=== PATIENT | female | born 1960 | race Caucasian/White ===

== ENCOUNTER → 2018-04-17 16:07 | Outpatient (CLI) | payer OTHER, SELFPAY ==
[2018-04-17 16:39] LABS: Add Manual Diff / Slide Review NO; Basophils Percent Auto 1.2 % (0-2); Eosinophils Percent Auto 1.8 % (2-4); Hemoglobin 14.2 g/dL (12.0-16.0); Lymphocytes Percent Auto 43.4 % (25-40); Mean Corpuscular HGB Conc 33.8 % (30-36); Mean Corpuscular Hemoglobin 31.9 PG (26-34); Mean Corpuscular Volume 94.6 fL (80-100); Monocytes Percent Auto 7.9 % (3-14); Neutrophils Absolute Auto 1900 /uL (3000-5900); Neutrophils Percent Auto 45.7 % (50-75); Platelet Count 248 X10^3/uL (150-400); Red Blood Cell Count 4.44 X10^6/uL (4.0-5.2); Red Cell Distribution Width 12.4 % (11.6-14.8); White Blood Cell Count 4.1 X10^3/uL (4.5-11.0)
[2018-04-17 17:41] LABS: Alanine Aminotransferase 38 IU/L (9-52); Albumin 4.7 g/dL (3.5-5.0); Albumin Globulin Ratio 1.8 (1.0-2.8); Alkaline Phosphatase 65 U/L (38-126); Aspartate Aminotransferase 33 IU/L (14-36); Bilirubin Total 0.3 mg/dL (0.2-1.3); Blood Urea Nitrogen 12 mg/dL (7-17); Calcium 10.5 mg/dL (8.4-10.2); Carbon Dioxide 30 mmol/L (22-32); Chloride 96 mmol/L (98-107); Estimated Glomerular Filt Rate > 60.0 mL/min (>60); Globulin 2.6 g/dL (1.7-4.1); Glucose 91 mg/dL (70-100); HEMOLYSIS < 15 (0-50); Potassium 4.1 mmol/L (3.4-5.1); Sodium 136 mmol/L (137-145); Total Protein 7.3 g/dL (6.3-8.2)
[2018-04-17 17:57] LABS: Free T3, Triiodothyronine Free 3.42 pg/mL (2.77-5.27); Free T4, Direct Thyroxine 1.17 ng/dL (0.78-2.19)
[2018-04-17 18:09] LABS: Thyroid Stimulating Hormone 1.26 uIU/mL (0.47-4.68)
== END ==
PROVIDERS: PCP Family Medicine; Visit Provider Internal Medicine
DX: J32.9 Chronic sinusitis, unspecified (principal); H93.19 Tinnitus, unspecified ear; R79.89 Other specified abnormal findings of blood chemistry; E83.52 Hypercalcemia; R53.83 Other fatigue; Z13.29 Encounter for screening for other suspected endocrine disorder
CPT/HCPCS: 36415; 80053; 84439; 84443; 84481; 85025

== ENCOUNTER → 2018-04-19 17:00 | Outpatient (CLI) | payer OTHER, SELFPAY ==
[2018-04-21 15:54] LABS: Parathyroid Hormone Int 80 pg/mL (14-64)
== END ==
PROVIDERS: PCP Family Medicine; Visit Provider Internal Medicine
DX: E83.52 Hypercalcemia (principal)
CPT/HCPCS: 83970

== ENCOUNTER → 2018-04-24 16:15 | Outpatient (CLI) | payer OTHER, SELFPAY ==
[2018-04-24 18:22] LABS: Vitamin D 25 Hydroxy (D3) 69.2 ng/mL (30.0-100.0)
== END ==
PROVIDERS: PCP Family Medicine; Visit Provider Internal Medicine
DX: E34.9 Endocrine disorder, unspecified (principal)
CPT/HCPCS: 36415; 82306

== ENCOUNTER → 2018-04-28 09:32 | Outpatient (CLI) | payer OTHER, SELFPAY ==
[2018-04-28 11:51] LABS: Calcium 10.1 mg/dL (8.4-10.2)
[2018-05-01 14:18] LABS: Parathyroid Hormone Int 78 pg/mL (14-64)
== END ==
PROVIDERS: Family Provider Family Medicine; PCP Family Medicine; Visit Provider Internal Medicine
DX: E21.3 Hyperparathyroidism, unspecified (principal); E34.9 Endocrine disorder, unspecified
CPT/HCPCS: 36415; 82310; 83970

== ENCOUNTER → 2018-05-03 14:10 | Outpatient (CLI) | payer OTHER, SELFPAY | PROVIDERS: Family Provider Family Medicine; PCP Family Medicine; Visit Provider Internal Medicine | DX: M81.0 Age-related osteoporosis without current pathological fracture (principal); Z78.0 Asymptomatic menopausal state; E34.9 Endocrine disorder, unspecified | CPT/HCPCS: 77080 ==

== ENCOUNTER → 2018-06-04 14:19 | Outpatient (CLI) | payer OTHER, SELFPAY | PROVIDERS: Family Provider Family Medicine; PCP Family Medicine; Visit Provider Family Medicine | DX: J06.0 Acute laryngopharyngitis (principal) | CPT/HCPCS: 87070 ==

== ENCOUNTER → 2018-06-08 09:52 | Outpatient (CLI) | payer OTHER, SELFPAY ==
[2018-06-08 11:02] LABS: Calcium 10.1 mg/dL (8.4-10.2)
[2018-06-08 11:17] LABS: Free T3, Triiodothyronine Free 3.77 pg/mL (2.77-5.27); Free T4, Direct Thyroxine 1.42 ng/dL (0.78-2.19)
[2018-06-08 11:30] LABS: Thyroid Stimulating Hormone 0.09 uIU/mL (0.47-4.68)
[2018-06-09 14:05] LABS: Parathyroid Hormone Int 9 pg/mL (14-64)
[2018-06-12 15:11] LABS: Anti Thyroglobulin Antibody < 1 IU/mL (< 2); Thyroid Peroxidase Antibodies < 1 IU/mL (< 9)
== END ==
PROVIDERS: PCP Family Medicine; Visit Provider Family Medicine
DX: C73 Malignant neoplasm of thyroid gland (principal); M62.838 Other muscle spasm; E03.9 Hypothyroidism, unspecified
CPT/HCPCS: 36415; 82310; 83970; 84439; 84443; 84481; 86376; 86800

== ENCOUNTER 2018-06-09 12:06 | Emergency (ER) | payer OTHER, SELFPAY ==
[2018-06-09] VITALS (8 sets, daily range): BP systolic 145–198; BP diastolic 66–91; PULSE 71–87; RESP 11–19; TEMP 36.6; O2SAT 98–100; BMI 20.3
[2018-06-09 13:07] LABS: Add Manual Diff / Slide Review NO; Basophils Percent Auto 1.3 % (0-2); Eosinophils Percent Auto 1.3 % (2-4); Hematocrit 43.6 % (36-46); Hemoglobin 14.6 g/dL (12.0-16.0); Lymphocytes Percent Auto 33.2 % (25-40); Mean Corpuscular HGB Conc 33.4 % (30-36); Mean Corpuscular Hemoglobin 31.5 PG (26-34); Mean Corpuscular Volume 94.3 fL (80-100); Neutrophils Absolute Auto 2500 /uL (3000-5900); Neutrophils Percent Auto 57.2 % (50-75); Platelet Count 272 X10^3/uL (150-400); Red Blood Cell Count 4.62 X10^6/uL (4.0-5.2); Red Cell Distribution Width 12.5 % (11.6-14.8); White Blood Cell Count 4.3 X10^3/uL (4.5-11.0)
[2018-06-09 13:16] LABS: INR 1.1 (0.9-1.3); Prothrombin Time 11.7 SECONDS (10.1-12.7)
[2018-06-09 13:18] LABS: PTT Partial Thromboplastin Tim 30 SECONDS (26.4-36.2)
[2018-06-09 13:20] LABS: Alanine Aminotransferase 36 IU/L (9-52); Albumin 4.8 g/dL (3.5-5.0); Albumin Globulin Ratio 1.7 (1.0-2.8); Alkaline Phosphatase 72 U/L (38-126); Aspartate Aminotransferase 27 IU/L (14-36); BUN Creatinine Ratio 17.1 (6-22); Bilirubin Total 0.5 mg/dL (0.2-1.3); Blood Urea Nitrogen 12 mg/dL (7-17); Calcium 9.4 mg/dL (8.4-10.2); Carbon Dioxide 32 mmol/L (22-32); Chloride 97 mmol/L (98-107); Creatine Kinase 63 U/L (30-135); Estimated Glomerular Filt Rate > 60.0 mL/min (>60); Globulin 2.8 g/dL (1.7-4.1); Glucose 98 mg/dL (80-110); HEMOLYSIS < 15 (0-50); Lipase 220 U/L (23-300); Potassium 3.8 mmol/L (3.4-5.1); Sodium 139 mmol/L (137-145); Total Protein 7.6 g/dL (6.3-8.2)
[2018-06-09 13:36] LABS: Free T4, Direct Thyroxine 1.34 ng/dL (0.78-2.19); Troponin I < 0.012 ng/mL (0.01-0.034)
--- NOTE | 2018-06-09 19:59 | ED_ITS ---
HPI - Weakness General Chief complaint: Weakness Stated complaint: POST THYROID SURGERY, FEELS LIKE SHE WILL FAINT Time Seen by Provider: 06/09/18 12:29 Source: patient Mode of arrival: ambulatory Limitations: no limitations History of Present Illness HPI Narrative: 58-year-old female, nonsmoker presents with a chief complaint of right buttock spasm and some tingling in her fingers and legs. She recently had a parathyroid surgery by a renown surgeon in [place]. She has been taking supplemental calcium and had what seemed to be normal labs yesterday with a calcium of over 10.1. Over the past few days the symptoms including spasming and numbness and tingling in her extremities have started earlier in the day and seemed to present after exertion. She has been taking significant exogenous calcium at the request of her surgeons given the similarity of her symptoms to hypocalcemic symptoms. Additionally she has been taking exogenous magnesium. She is here at the request of her surgeon Complaint: tingling Onset (ago): day(s) Duration: intermittent Location: LLE and RLE Migration: none Severity: mild Quality: tingling and aching Relieving factors: none Exacerbating factors: none Context: recent surgery Associated symptoms: denies other symptoms Related Data Home Medications Medication Instructions Recorded Confirmed Fish Oil (#SUPER EPA 2000) 2,000 mg PO Q DAY #0 12/13/11 06/04/18 cholecalciferol (vitamin D3) 2,000 iu PO Q DAY #0 12/13/11 06/04/18 [Vitamin D3] ASCORBIC ACID (VITAMIN C) 1,000 mg PO QDAY #0 12/20/11 06/04/18 pseudoephedrine 30 mg tablet 30 mg PO Q4-6H PRN 04/10/18 06/04/18 Previous Rx's Medication Instructions Recorded acyclovir [Zovirax] 200 mg PO TID #270 tab 06/30/17 Allergies Allergy/AdvReac Type Severity Reaction Status Date / Time No Known Drug Allergies Allergy Verified 06/09/18 12:18 Review of Systems Review of Systems All systems reviewed & are unremarkable except as noted in HPI and below Constitutional Denies chills, Denies fever(s), Denies lethargy and Denies weakness Eyes Denies change in vision, Denies eye discharge, Denies irritation and Denies loss of vision ENT Ears, Nose, Mouth, and Throat: Denies change in voice, Denies neck pain and Denies sore throat Cardiovascular Denies chest pain, Denies irregular heart rhythm, Denies lightheadedness, Denies palpitations, Denies dyspnea, Denies dyspnea on exertion and Denies orthopnea Respiratory Denies cough, Denies dyspnea, Denies dyspnea on exertion and Denies wheezing Gastrointestinal Gastrointestinal: Denies abdominal pain, Denies change in bowel habits, Denies diarrhea, Denies nausea and Denies vomiting Genitourinary Denies hematuria, Denies flank pain, Denies urinary incontinence and Denies urinary urgency Musculoskeletal Reports system reviewed and no additional complaints, except as docu and Denies neck pain Integumentary/Breasts Denies pruritus, Denies erythema, Denies rash and Denies wounds Neurologic Reports system reviewed and no additional complaints, except as docu, Denies confusion, Denies loss of vision and Denies weakness Psychiatric Denies anxiety, Denies confusion, Denies depression, Denies homicidal ideation and Denies suicidal ideation Endocrine Denies palpitations Hematologic/Lymphatic Denies easy bruising Allergic/Immunologic Denies wheezing [facility] Medical History Osteopenia (Chronic ~2011) Benign heart murmur (Chronic) Skin cancer, basal cell (Resolved ~2011) Menopause (Chronic) Thyroid nodule (Chronic ~2002) Surgical History History of parathyroidectomy (Acute) Anesthesia (Inactive) Status post delivery (~1991) Status post colonoscopy (~2011) Family History Brother Colitis Anxiety Father Dementia Broken hip Mother Anxiety Grandmother Dementia Sister Depression Sister Brain tumor Seizures Social History Smoking Status: Never smoker Exam Narrative Exam Narrative: GENERAL: This is a well-nourished, well-developed patient, in mild distress. Anxious HEAD: Atraumatic. Normocephalic. No temporal or scalp tenderness. EYES: Pupils equal round and reactive. Extraocular motions intact. No scleral icterus. No injection or drainage. ENT: Nose without bleeding, purulent drainage or septal hematoma. Throat without erythema, tonsillar hypertrophy or exudate. Uvula midline. Airway patent. NECK: Trachea midline. No JVD or lymphadenopathy. Supple, nontender, no meningeal signs. CARDIOVASCULAR: Regular rate and rhythm without murmurs, gallops, or rubs. RESPIRATORY: Clear to auscultation. Breath sounds equal bilaterally. No wheezes , rales, or rhonchi. GASTROINTESTINAL: Abdomen soft, non-tender, nondistended. No hepato-splenomegaly , or palpable masses. No guarding. EXTREMITIES: No clubbing, cyanosis, or edema. No joint tenderness, effusion, or edema noted. BACK: Nontender without deformity or crepitance. No flank tenderness. NEURO: AOx3. SKIN: No rash or erythema. Initial Vital Signs Initial Vital Signs: Vital Signs Temperature 97.9 F 06/09/18 12:14 Pulse Rate 87 06/09/18 12:14 Respiratory Rate 14 06/09/18 12:14 Blood Pressure 198/91 H 06/09/18 12:14 Pulse Oximetry 100 06/09/18 12:14 Course Orders Ordered: ED Orders 06/09/18 12:26 EKG-12 Lead Stat 06/09/18 13:00 Complete Blood Count AUTO DIFF Stat Comprehensive Metabolic Panel Stat Free T4 Free Thyroxine Stat Ionized Calcium Stat Lipase Stat Magnesium Stat Partial Thromboplastin Time Stat Prothrombin Time INR Stat TSH [Thyroid Stimulating Hormone] Stat Thyroid Stimulating Immunoglob Stat Troponin & CK Cardiac Panel Stat Reevaluation(s) Reevaluation #1: Patient has no Trousseau/Chvostek sign of hypocalcemia. Labs are normal. Exam unremarkable. Consultations Consultation #1: I have spoken with the patient's surgeon from [place] room wishes me to reassure the patient and encourage electrolyte replacement as they had previously discussed and to contact him for further problems Vital Signs - 8 hr 06/09/18 12:14 06/09/18 12:30 06/09/18 13:00 Temperature 97.9 F Pulse Rate 87 75 78 Respiratory Rate 14 16 12 Blood Pressure 198/91 H Blood Pressure [Left Arm] 151/72 H 161/77 H Pulse Oximetry 100 100 100 06/09/18 13:40 06/09/18 14:00 06/09/18 14:32 Temperature Pulse Rate 71 72 76 Respiratory Rate 11 L 19 16 Blood Pressure Blood Pressure [Left Arm] 167/72 H 145/74 H 158/66 H Pulse Oximetry 100 100 99 06/09/18 15:38 06/09/18 15:55 Temperature Pulse Rate 74 78 Respiratory Rate 18 16 Blood Pressure 159/76 H Blood Pressure [Left Arm] 159/76 H Pulse Oximetry 100 98 MDM - Weakness Lab Data Result diagrams: 06/09/18 13:00 06/09/18 13:00 Lab Results 06/09/18 06/09/18 06/09/18 Range/Units 13:00 13:00 13:00 WBC 4.3 L (4.5-11.0) X10^3/uL RBC 4.62 (4.0-5.2) X10^6/uL Hgb 14.6 (12.0-16.0) g/dL Hct 43.6 (36-46) % MCV 94.3 (80-100) fL MCH 31.5 (26-34) PG MCHC 33.4 (30-36) % RDW 12.5 (11.6-14.8) % Plt Count 272 (150-400) X10^3/uL Neut % (Auto) 57.2 (50-75) % Lymph % (Auto) 33.2 (25-40) % Nash % (Auto) 7.0 (3-14) % Eos % (Auto) 1.3 L (2-4) % Baso % (Auto) 1.3 (0-2) % Neut # (Auto) 2500 L (3146-5570) /uL PT 11.7 (10.1-12.7) SECONDS INR 1.1 (0.9-1.3) APTT 30 (26.4-36.2) SECONDS Sodium 139 (137-145) mmol/L Potassium 3.8 (3.4-5.1) mmol/L Chloride 97 L (98-107) mmol/L Carbon Dioxide 32 (22-32) mmol/L BUN 12 (7-17) mg/dL Creatinine 0.70 (0.52-1.04) mg/dL Estimated GFR > 60.0 (>60) mL/min BUN/Creatinine Ratio 17.1 (6-22) Glucose 98 (80-110) mg/dL Calcium 9.4 (8.4-10.2) mg/dL Magnesium 2.0 (1.6-2.3) mg/dL Total Bilirubin 0.5 (0.2-1.3) mg/dL AST 27 (14-36) IU/L ALT 36 (9-52) IU/L Alkaline Phosphatase 72 (38-126) U/L Total Creatine Kinase 63 (30-135) U/L CK-MB (CK-2) TNP CK-MB (CK-2) Rel Index TNP Troponin I < 0.012 (0.01-0.034) ng/mL Total Protein 7.6 (6.3-8.2) g/dL Albumin 4.8 (3.5-5.0) g/dL Globulin 2.8 (1.7-4.1) g/dL Albumin/Globulin Ratio 1.7 (1.0-2.8) Lipase 220 (23-300) U/L TSH (0.47-4.68) uIU/mL Free T4 (0.78-2.19) ng/dL 06/09/18 Range/Units 13:00 WBC (4.5-11.0) X10^3/uL RBC (4.0-5.2) X10^6/uL Hgb (12.0-16.0) g/dL Hct (36-46) % MCV (80-100) fL MCH (26-34) PG MCHC (30-36) % RDW (11.6-14.8) % Plt Count (150-400) X10^3/uL Neut % (Auto) (50-75) % Lymph % (Auto) (25-40) % Nash % (Auto) (3-14) % Eos % (Auto) (2-4) % Baso % (Auto) (0-2) % Neut # (Auto) (2878-2040) /uL PT (10.1-12.7) SECONDS INR (0.9-1.3) APTT (26.4-36.2) SECONDS Sodium (137-145) mmol/L Potassium (3.4-5.1) mmol/L Chloride (98-107) mmol/L Carbon Dioxide (22-32) mmol/L BUN (7-17) mg/dL Creatinine (0.52-1.04) mg/dL Estimated GFR (>60) mL/min BUN/Creatinine Ratio (6-22) Glucose (80-110) mg/dL Calcium (8.4-10.2) mg/dL Magnesium (1.6-2.3) mg/dL Total Bilirubin (0.2-1.3) mg/dL AST (14-36) IU/L ALT (9-52) IU/L Alkaline Phosphatase (38-126) U/L Total Creatine Kinase (30-135) U/L CK-MB (CK-2) CK-MB (CK-2) Rel Index Troponin I (0.01-0.034) ng/mL Total Protein (6.3-8.2) g/dL Albumin (3.5-5.0) g/dL Globulin (1.7-4.1) g/dL Albumin/Globulin Ratio (1.0-2.8) Lipase (23-300) U/L TSH 0.10 L (0.47-4.68) uIU/mL Free T4 1.34 (0.78-2.19) ng/dL Discharge Plan Departure Patient Disposition: Home Clinical Impression: Paresthesia, Cramps of right lower extremity Discharge Date/Time: 06/09/18 15:55 Interventions: ED Discharge Assessment Last Done: 06/09/18 15:55 Instructions: DI for Hypocalcemia Activity Restrictions/Additional Instructions: *You have been diagnosed with [ paresthesias and leg cramps ] *What to do: *Take medications as directed *Follow up with your primary care provider in 2-3 days, call for an appointment. Let them know you were seen in the Emergency Department and that we ask that you be seen in follow up *Return to ER if you should have any new, worsening or concerning symptoms Prescriptions: No Action cholecalciferol (vitamin D3) [Vitamin D3] 2,000 UNIT capsule 2,000 iu PO Q DAY Qty: 0 RF: 0 Fish Oil (#SUPER EPA 2000) 2,000 mg PO Q DAY Qty: 0 RF: 0 ASCORBIC ACID (VITAMIN C) 1,000 mg PO QDAY Qty: 0 RF: 0 acyclovir [Zovirax] 200 MG capsule 200 mg PO TID Qty: 270 RF: 3 pseudoephedrine HCl [Sudafed] 30 mg tablet 30 mg PO Q4-6H PRNRF: 0 Referrals: Elsy Mendoza DO [Primary Care Provider] -
[2018-06-12 15:44] LABS: Thyroid Stimulating Immunoglob < 89 % baseline (< 140)
== END 2018-06-09 15:55 | disposition home or self-care (01) ==
PROVIDERS: Emergency Provider Emergency Medicine; PCP Family Medicine
DX: R20.2 Paresthesia of skin (principal); R25.2 Cramp and spasm; Z98.890 Other specified postprocedural states
CPT/HCPCS: 36415; 80053; 82330; 82550; 83690; 83735; 84439; 84443; 84445; 84484; 85025; 85610; 85730; 93005; 93010; 99284

== ENCOUNTER → 2018-06-14 07:53 | Outpatient (CLI) | payer OTHER, SELFPAY ==
[2018-06-14 09:19] LABS: Calcium 9.3 mg/dL (8.4-10.2)
[2018-06-14 09:41] LABS: TSH w/ Reflex to FT4 1.07 uIU/mL (0.47-4.68)
[2018-06-16 14:44] LABS: Parathyroid Hormone Int 59 pg/mL (14-64)
== END ==
PROVIDERS: PCP Family Medicine; Visit Provider Family Medicine
DX: E21.3 Hyperparathyroidism, unspecified (principal); R20.2 Paresthesia of skin; E03.9 Hypothyroidism, unspecified
CPT/HCPCS: 36415; 82310; 83970; 84443

== ENCOUNTER → 2018-06-16 10:10 | Outpatient (CLI) | payer OTHER, SELFPAY ==
--- NOTE | 2018-06-16 10:11 | DI.RAD.S_ITS ---
PROCEDURE: XR HIP W PEL IF DONE RT 2V INDICATIONS: Right hip pain TECHNIQUE: AP pelvis with lateral view(s) of the right hip(s). COMPARISON: [facility], XR PELVIS 1 OR 2VW, 05/31/2016, 15:09. FINDINGS: Bones: No fractures or dislocations. Pelvic ring appears intact. No suspicious bony lesions. Mild degenerative changes are present within the hips bilaterally. Soft tissues: The visualized bowel gas pattern is normal. No suspicious soft tissue calcifications. IMPRESSION: Mild degenerative changes. No visualized acute fracture or dislocation. However, if clinical concern and/or pain persist, short interval imaging followup in 7-10 days is recommended, as occult injury cannot be definitively excluded. Dictated by: Janeth Gaffney M.D. on 06/16/2018 at 10:58 Approved by: Janeth Gaffney M.D. on 06/16/2018 at 10:58
== END ==
PROVIDERS: PCP Family Medicine; Visit Provider Family Medicine
DX: M25.551 Pain in right hip (principal); M16.0 Bilateral primary osteoarthritis of hip
CPT/HCPCS: 73502

== ENCOUNTER → 2018-06-27 16:20 | Outpatient (CLI) | payer OTHER, SELFPAY ==
--- NOTE | 2018-06-27 16:22 | DI.RAD.S_ITS ---
PROCEDURE: XR LUMBAR SPINE MIN 4V INDICATIONS: nerve impingement with low back pain TECHNIQUE: 5 views of the lumbar spine acquired. COMPARISON: None. FINDINGS: Bones: No fracture or focal osseous destruction. Diffuse endplate spurring and sclerosis. Trace anterolisthesis of L4 on L5. Diffuse facet arthropathy. Minimal levocurvature. Moderate narrowing of the L2-L3 and L4-L5 disc space. The remaining disc spaces appear intact. Soft tissues: Overlying bowel gas pattern is normal. No suspicious soft tissue calcifications. Flexion/extension: No evidence of abnormal motion with flexion and extension lateral views. IMPRESSION: Lumbar disc degeneration as above most pronounced at L2-L3 and L4-5. Diffuse facet arthropathy. Dictated by: Mehul Loaiza M.D. on 06/27/2018 at 16:51 Approved by: Mehul Loaiza M.D. on 06/27/2018 at 16:52
[2018-06-27 17:52] LABS: BUN Creatinine Ratio 17.1 (6-22); Blood Urea Nitrogen 12 mg/dL (7-17); Calcium 9.7 mg/dL (8.4-10.2); Carbon Dioxide 27 mmol/L (22-32); Chloride 99 mmol/L (98-107); Estimated Glomerular Filt Rate > 60.0 mL/min (>60); Glucose 95 mg/dL (80-110); HEMOLYSIS < 15 (0-50); Phosphorous 4.1 mg/dL (2.8-4.1); Potassium 4.7 mmol/L (3.4-5.1); Sodium 138 mmol/L (137-145)
[2018-06-27 18:08] LABS: Free T3, Triiodothyronine Free 3.18 pg/mL (2.77-5.27); Free T4, Direct Thyroxine 1.15 ng/dL (0.78-2.19); Vitamin D 25 Hydroxy (D3) 52.2 ng/mL (30.0-100.0)
[2018-06-30 08:08] LABS: Magnesium, RBC 5.5 mg/dL (4.0-6.4)
== END ==
PROVIDERS: PCP Family Medicine; Visit Provider Family Medicine
DX: M47.816 Spondylosis without myelopathy or radiculopathy, lumbar region (principal); M51.36 Other intervertebral disc degeneration, lumbar region; M62.838 Other muscle spasm; M79.604 Pain in right leg; E04.1 Nontoxic single thyroid nodule; M54.9 Dorsalgia, unspecified; M54.5 Low back pain; E21.3 Hyperparathyroidism, unspecified
CPT/HCPCS: 36415; 72110; 80048; 82306; 83735; 84100; 84439; 84481

== ENCOUNTER → 2018-07-20 15:06 | Outpatient (CLI) | payer OTHER, SELFPAY ==
[2018-07-20 15:40] LABS: BUN Creatinine Ratio 16.3 (6-22); Blood Urea Nitrogen 13 mg/dL (7-17); Calcium 9.9 mg/dL (8.4-10.2); Carbon Dioxide 28 mmol/L (22-32); Chloride 98 mmol/L (98-107); Estimated Glomerular Filt Rate > 60.0 mL/min (>60); Glucose 111 mg/dL (80-110); HEMOLYSIS < 15 (0-50); Potassium 4.6 mmol/L (3.4-5.1); Sodium 140 mmol/L (137-145)
[2018-07-24 12:18] LABS: Parathyroid Hormone Int 55 pg/mL (14-64)
== END ==
PROVIDERS: PCP Family Medicine; Visit Provider Family Medicine
DX: E83.51 Hypocalcemia (principal); M81.8 Other osteoporosis without current pathological fracture; E21.3 Hyperparathyroidism, unspecified
CPT/HCPCS: 36415; 80048; 82306; 83970; 84100

== ENCOUNTER → 2018-08-03 09:04 | Outpatient (CLI) | payer OTHER, SELFPAY ==
[2018-08-03 11:05] LABS: Free T4, Direct Thyroxine 1.06 ng/dL (0.78-2.19)
[2018-08-03 11:06] LABS: Prolactin 9.5 ng/mL (3.0-18.6)
[2018-08-03 11:19] LABS: Thyroid Stimulating Hormone 1.18 uIU/mL (0.47-4.68)
== END ==
PROVIDERS: PCP Family Medicine; Visit Provider Family Medicine
DX: C73 Malignant neoplasm of thyroid gland (principal); E04.1 Nontoxic single thyroid nodule; E21.3 Hyperparathyroidism, unspecified
CPT/HCPCS: 36415; 84146; 84439; 84443

== ENCOUNTER → 2019-02-07 07:46 | Outpatient (CLI) | payer OTHER, SELFPAY ==
[2019-02-07 09:15] LABS: Add Manual Diff / Slide Review NO; Basophils Absolute Auto 0 /uL (0-100); Basophils Percent Auto 1.4 % (0-2); Eosinophils Absolute Auto 100 /uL (0-450); Eosinophils Percent Auto 2.4 % (2-4); Hematocrit 41.1 % (36-46); Hemoglobin 14.2 g/dL (12.0-16.0); Lymphocytes Absolute Auto 1500 /uL (1100-4500); Lymphocytes Percent Auto 46.3 % (25-40); Mean Corpuscular HGB Conc 34.4 % (30-36); Mean Corpuscular Hemoglobin 32.1 PG (26-34); Mean Corpuscular Volume 93.4 fL (80-100); Monocytes Absolute Auto 300 /uL (0-900); Neutrophils Absolute Auto 1300 /uL (1500-7000); Neutrophils Percent Auto 40.9 % (50-75); Platelet Count 204 X10^3/uL (150-400); Red Blood Cell Count 4.41 X10^6/uL (4.0-5.2); Red Cell Distribution Width 12.5 % (11.6-14.8); White Blood Cell Count 3.2 X10^3/uL (4.5-11.0)
[2019-02-07 09:51] LABS: Free T3, Triiodothyronine Free 2.62 pg/mL (2.77-5.27); Free T4, Direct Thyroxine 1.11 ng/dL (0.78-2.19)
[2019-02-07 10:05] LABS: Thyroid Stimulating Hormone 1.17 uIU/mL (0.47-4.68)
[2019-02-08 09:30] LABS: Alanine Aminotransferase 32 IU/L (9-52); Albumin 4.6 g/dL (3.5-5.0); Albumin Globulin Ratio 2.1 (1.0-2.8); Alkaline Phosphatase 57 U/L (38-126); Aspartate Aminotransferase 27 IU/L (14-36); BUN Creatinine Ratio 15.7 (6-22); Bilirubin Total 0.4 mg/dL (0.2-1.3); Blood Urea Nitrogen 11 mg/dL (7-17); Calcium 9.3 mg/dL (8.4-10.2); Carbon Dioxide 27 mmol/L (22-32); Chloride 96 mmol/L (98-107); Estimated Glomerular Filt Rate > 60.0 mL/min (>60); Globulin 2.2 g/dL (1.7-4.1); Glucose 81 mg/dL (80-110); HEMOLYSIS < 15 (0-50); Potassium 4.6 mmol/L (3.4-5.1); Sodium 132 mmol/L (137-145); Total Protein 6.8 g/dL (6.3-8.2)
== END ==
PROVIDERS: PCP Family Medicine; Visit Provider Family Medicine
DX: E04.1 Nontoxic single thyroid nodule (principal); E21.3 Hyperparathyroidism, unspecified; E55.9 Vitamin D deficiency, unspecified; E83.51 Hypocalcemia; J32.9 Chronic sinusitis, unspecified; R01.0 Benign and innocent cardiac murmurs
CPT/HCPCS: 36415; 80053; 82306; 84439; 84443; 84481; 85025

== ENCOUNTER → 2019-04-05 07:47 | Outpatient (CLI) | payer OTHER, SELFPAY ==
[2019-04-05 17:14] LABS: Thyroid Stimulating Hormone 0.69 uIU/mL (0.47-4.68)
== END ==
PROVIDERS: Family Provider Family Medicine; PCP Family Medicine; Visit Provider Naturopath
DX: E03.9 Hypothyroidism, unspecified (principal)
CPT/HCPCS: 36415; 84443

== ENCOUNTER → 2019-08-22 14:47 | Outpatient (CLI) | payer OTHER, SELFPAY ==
[2019-08-24 16:01] LABS: Calcium 8.7 mg/dL (8.6-10.4); Parathyroid Hormone, Intact 38 pg/mL (14-64)
[2019-08-24 16:08] LABS: Anti Thyroglobulin Antibody < 1 IU/mL (< 2); Thyroid Peroxidase Antibodies < 1 IU/mL (< 9)
[2019-08-25 15:13] LABS: Triiodothyronine T3 Reverse 15 ng/dL (8-25)
== END ==
PROVIDERS: Family Provider Family Medicine; PCP Family Medicine; Visit Provider Family Medicine
DX: E03.9 Hypothyroidism, unspecified (principal); E04.1 Nontoxic single thyroid nodule; E21.3 Hyperparathyroidism, unspecified
CPT/HCPCS: 36415; 82310; 83970; 84482; 86376; 86800

== ENCOUNTER → 2020-06-10 15:31 | Outpatient (ROUT) | payer SELFPAY ==
[2020-06-10 16:08] LABS: Appearance Urine UA CLEAR; Bilirubin Urine UA NEGATIVE (NEGATIVE); Color Urine UA YELLOW; Glucose Urine UA NEGATIVE (Negative); Ketones Urine UA NEGATIVE (NEGATIVE); Leukocyte Esterase Urine UA 2+ (NEGATIVE); Nitrite Urine UA NEGATIVE (Negative); Occult Blood Urine UA 3+ (Negative); Protein Urine UA 1+ (Negative); Specific Gravity Urine UA <=1.005 (1.000-1.035); Urobilinogen Urine UA 0.2 E.U./dL (0.2)
[2020-06-10 16:27] LABS: pH Urine UA 6.5 (4.5-8.0)
[2020-06-10 17:48] LABS: Bacteria Urine Many (>30); Culture Indicated Urine Specimen Cultured; RBC Urine 5-10/HPF (0-5/HPF); Renal Epithelial Cells Urine 0-1/HPF (0-1/HPF); Squamous Epithelial Cell Urine 0-1 /HPF (0-5/HPF); Transitional Epi Cells Urine 0-1/HPF (0-5/HPF); WBC Urine 30-100/HPF (0-5/HPF)
== END ==
PROVIDERS: Family Provider Family Medicine; PCP Family Medicine; Visit Provider Naturopath
DX: N39.0 Urinary tract infection, site not specified (principal)
CPT/HCPCS: 81001; 87077; 87086; 87186

== ENCOUNTER → 2020-10-02 07:57 | Outpatient (CLI) | payer OTHER, SELFPAY ==
[2020-10-02] MEDS: COVID-19 VACC #1, MRNA(MOD) 100 MCG/0.5 ML VIAL IM (08:02)
== END ==
PROVIDERS: Family Provider Family Medicine; PCP Family Medicine; Visit Provider Internal Medicine
DX: Z23 Encounter for immunization (principal)
CPT/HCPCS: 0011A; 91301

== ENCOUNTER → 2020-10-29 15:33 | Outpatient (CLI) | payer OTHER, SELFPAY ==
[2020-10-29] MEDS: COVID-19 VACC #2, MRNA(MOD) 100 MCG/0.5 ML VIAL IM (15:40)
== END ==
PROVIDERS: Family Provider Family Medicine; PCP Family Medicine; Visit Provider Internal Medicine
DX: Z23 Encounter for immunization (principal)
CPT/HCPCS: 0012A; 91301

== ENCOUNTER → 2021-01-18 14:03 | Outpatient (CLI) | payer OTHER, SELFPAY ==
--- NOTE | 2021-01-18 14:05 | DI.RAD.S_ITS ---
PROCEDURE: XR DEXA AXIAL SKELETON INDICATIONS: osteoporosis COMPARISON: [facility], CR, XR DEXA AXIAL SKELETON, 05/03/2018, 14:50. FINDINGS: This blank DEXA report has been sent in error by the PACS system. The correct and complete report will be forthcoming in 1-2 days. Thank you for your patience and understanding. Dictated by: Berkley Rios MD, PhD on 01/18/2021 at 16:54 Approved by: Berkley Rios MD, PhD on 01/18/2021 at 16:54
--- NOTE | 2021-01-18 14:05 | DI.US.S_ITS ---
PROCEDURE: US THYROID INDICATIONS: NODULES; HISTORY THYROID CANCER TECHNIQUE: Real-time scanning was performed of the thyroid gland, with image documentation. COMPARISON: [facility], , US THYROID, 12/30/2002, 11:00. FINDINGS: Right: Thyroid lobe measures 5.1 x 1.7 x 1.1 cm, and is homogeneous in echotexture. Left: Thyroid lobe measures 4.4 x 1.2 x 1.1 cm, and is homogenous in echotexture. Isthmus: 4 mm thick. Nodule number: 1 Location: Left mid Size: 0.6 x 0.5 x 0.3 cm. Composition: Predominantly cystic Echogenicity: Hypoechoic Shape: wider than tall. Margins: Smooth Echogenic foci: None Total points: 2 ACR TI-RADS category: TR 2, not suspicious Nodule number: 2 Location: Right isthmus Size: 1.3 x 1.1 x 0.5 cm. Composition: Solid Echogenicity: Isoechoic Shape: Wider than tall Margins: Smooth Echogenic foci: None Total points: 3 ACR TI-RADS category: TR 3, mildly suspicious Nodule number: 3 Location: Right superior Size: 1.4 x 1.1 x 0.8 cm. Composition: Solid Echogenicity: Isoechoic Shape: wider than tall. Margins: Smooth Echogenic foci: None Total points: 3 ACR TI-RADS category: TR 3, mildly suspicious Nodule number: 4 Location: Right superior Size: 1.3 x 0.7 x 0.6 cm. Composition: Solid Echogenicity: Hypoechoic Shape: wider than tall. Margins: Smooth Echogenic foci: None Total points: 4 ACR TI-RADS category: TR 4, moderately suspicious IMPRESSION: Several thyroid nodules as described above. Right superior thyroid nodule measuring 1.3 cm. TR 4, moderately suspicious. Recommend follow-up thyroid ultrasound in 1 year. ACR TI-RADS definitions and recommendations: TI-RADS 1 (benign): 0 points. FNA not needed. TI-RADS 2 (not suspicious): 2 points. FNA not needed. TI-RADS 3 (mildly suspicious): 3 points. * FNA if 2.5 cm or larger, follow up if 1.5 cm or larger (at 1, 3, and 5 years). TI-RADS 4 (moderately suspicious): 4-6 points. * FNA if 1.5 cm or larger, follow up if 1 cm or larger (at 1, 2, 3, and 5 years). TI-RADS 5 (highly suspicious): 7 points or more. * FNA if 1 cm or larger, follow up if 0.5 cm or larger (every year for 5 years). Dictated by: Fletcher Durant M.D. on 01/18/2021 at 17:25 Approved by: Fletcher Durant M.D. on 01/18/2021 at 17:32
== END ==
PROVIDERS: Family Provider Family Medicine; PCP Family Medicine; Referring Provider Family Medicine; Visit Provider Family Medicine
DX: C73 Malignant neoplasm of thyroid gland (principal); E04.2 Nontoxic multinodular goiter; E21.3 Hyperparathyroidism, unspecified; E03.9 Hypothyroidism, unspecified; M81.0 Age-related osteoporosis without current pathological fracture; Z78.0 Asymptomatic menopausal state
CPT/HCPCS: 76536; 77080

== ENCOUNTER → 2023-01-06 15:17 | Outpatient (CLI) | payer OTHER, SELFPAY ==
--- NOTE | 2023-01-06 15:19 | DI.US.S_ITS ---
PROCEDURE: US THYROID INDICATIONS: thyroid nodule TECHNIQUE: Real-time scanning was performed of the thyroid gland, with image documentation. COMPARISON: [facility], [place], US THYROID, 01/18/2021, 14:17. FINDINGS: Right: Thyroid lobe measures 4.4 x 1.2 x 1.2 cm, and demonstrates nodules Left: Thyroid lobe measures 4.8 x 1.1 x 1.3 cm, and is demonstrates nodules Isthmus: 4 mm thick. Nodule number: 1 Location: Left mid thyroid Size: 0.4 x 0.3 x 0.4 cm. Composition: Solid Echogenicity: Isoechoic Shape: wider than tall. Margins: Smooth Echogenic foci: 0 Total points: 3 ACR TI-RADS category: 3 Recommendations: No follow-up necessary based on size Nodule number: 2 Location: Left mid thyroid Size: 0.6 x 0.4 x 0.6 cm. Composition: Predominantly cystic Echogenicity: Hypoechoic Shape: wider than tall. Margins: Smooth Echogenic foci: 0 Total points: 2 ACR TI-RADS category: 2 Recommendations: No follow-up necessary. Nodule number: 3 Location: Left upper thyroid Size: 0.6 x 0.3 x 0.6 cm. Composition: Predominantly cystic Echogenicity: Hypoechoic Shape: wider than tall. Margins: Smooth Echogenic foci: 0 Total points: 2 ACR TI-RADS category: 2 Recommendations: No follow-up necessary Nodule number: 4 Location: Right isthmus Size: 1.3 x 0.6 x 1.1 cm. Composition: Solid Echogenicity: Hypoechoic Shape: wider than tall. Margins: Smooth Echogenic foci: 0 Total points: 4 ACR TI-RADS category: 4 Recommendations: Follow-up imaging at 1, 2, 3, and 5 years Nodule number: 5 Location: Right superior thyroid Size: 1.5 x 0.7 x 1.2 cm. Composition: Solid Echogenicity: Isoechoic Shape: wider than tall. Margins: Smooth Echogenic foci: 0 Total points: 3 ACR TI-RADS category: 3 Recommendations: Follow-up imaging at 1, 3, and 5 years Nodule number: 6 Location: Right mid thyroid Size: 0.9 x 0.5 x 0.8 cm. Composition: Predominantly solid Echogenicity: Hypoechoic Shape: wider than tall. Margins: Smooth Echogenic foci: 0 Total points: 4 ACR TI-RADS category: 4 Recommendations: Follow-up imaging at 1, 2, 3, and 5 years IMPRESSION: Bilateral thyroid nodules with follow-up imaging recommendations as above. Dictated by: Ej Wells M.D. on 01/06/2023 at 16:18 Transcribed by: NALINI on 01/06/2023 at 16:23 Approved by: Ej Wells M.D. on 01/06/2023 at 16:33
== END ==
PROVIDERS: Family Provider Family Medicine; PCP Family Medicine; Referring Provider Family Medicine; Visit Provider Family Medicine
DX: C73 Malignant neoplasm of thyroid gland (principal); E21.3 Hyperparathyroidism, unspecified; E04.2 Nontoxic multinodular goiter
CPT/HCPCS: 76536

== ENCOUNTER → 2023-02-15 08:17 | Outpatient (CLI) | payer OTHER, SELFPAY ==
[2023-02-16 16:07] LABS: Fecal Immunochemical Test Negative (Negative)
== END ==
PROVIDERS: Family Provider Family Medicine; PCP Family Medicine; Referring Provider Family Medicine; Visit Provider Family Medicine
DX: Z12.11 Encounter for screening for malignant neoplasm of colon (principal)
CPT/HCPCS: 82274

== ENCOUNTER → 2023-04-03 15:21 | Outpatient (CLI) | payer OTHER, SELFPAY ==
--- NOTE | 2023-04-03 15:22 | DI.MG.S_ITS ---
BILATERAL DIGITAL SCREENING MAMMOGRAM 3D/2D WITH CAD: 04/03/2023 CLINICAL: Routine screening. Comparison is made to exams dated: 11/16/2017 mammogram, 11/22/2011 mammogram, and 09/14/2010 mammogram - [facility]. Both breasts are heterogeneously dense, which may obscure small masses (category c / 51-75% glandular tissue). Current study was also evaluated with a Computer Aided Detection (CAD) system. No significant masses, calcifications, or other findings are seen in either breast. There has been no significant interval change. IMPRESSION: NEGATIVE There is no mammographic evidence of malignancy. A 1 year screening mammogram is recommended. Based on the Tyrer Cuzick model (a risk assessment model) the patient's lifetime risk is 10.8% and her 10 year risk is 5.0%. According to the ACR, ACS, and NCCN guidelines, an annual breast MRI exam along with mammogram is recommended if the patient's lifetime risk is 20% or greater. This exam was interpreted at Station ID: [id number]. NOTE: For mammograms, a report in lay terms will be sent to the patient. Approximately 15% of breast malignancies will not be visualized mammographically. In the management of a palpable breast mass, a negative mammogram must not discourage biopsy of a clinically suspicious lesion. Electronically Signed By: Fletcher guillen/marija:04/04/2023 20:26:16 letter sent: Normal Exam ACR BI-RADS Category 1: Negative [id number]
== END ==
PROVIDERS: Family Provider Family Medicine; PCP Family Medicine; Referring Provider Family Medicine; Visit Provider Family Medicine
DX: Z12.31 Encounter for screening mammogram for malignant neoplasm of breast (principal)
CPT/HCPCS: 77063; 77067

== ENCOUNTER → 2023-07-03 14:14 | Outpatient (CLI) | payer MEDICARE, OTHER, SELFPAY ==
--- NOTE | 2023-07-03 14:21 | DI.RAD.S_ITS ---
Bone Density Report Name: AMIE TAPIA Age: 63 Sex: Female Ethnicity: White Date of : 1960 Indication: osteopenia; parental hip fracture; Referring Provider: MARTÍN BROWER Study: Bone densitometry was performed. Exam Date: July 03, 2023 Accession number: [id number] Bone Density: Region BMD T-score Z-score Classification AP Spine(L1-L4) 0.786 -2.4 -0.6 Osteopenia Femoral Neck (Left) 0.607 -2.2 -0.7 Osteopenia Total Hip (Left) 0.759 -1.5 -0.3 Osteopenia Femoral Neck (Right) 0.617 -2.1 -0.6 Osteopenia Total Hip (Right) 0.715 -1.9 -0.6 Osteopenia Total Hip Mean 0.737 -1.7 -0.5 Osteopenia World Health Organization criteria for BMD impression classify patients as: Normal (T-score at or above -1.0), Osteopenia (T-score between -1.0 and -2.5), or Osteoporosis (T-score at or below -2.5). 10-year Fracture Risk(1): Major Osteoporotic Fracture 18% Hip Fracture 1.9% Reported Risk Factors: [place] (), Neck BMD=0.607, BMI=20.5, parental fracture (1) FRAX(R) Version 3.08. Fracture probability calculated for an untreated patient. Fracture probability may be lower if the patient has received treatment. Previous Exams: -- Region Exam Age BMD T-score BMD Change BMD Change Date g/cm2 vs Baseline vs Previous -- AP Spine (L1-L4) 07/03/2023 63 0.786 -2.4 -0.001 (-0.1%)# -0.001 (-0.1%)# 01/18/2021 60 0.787 -2.4 Total Hip(Left) 07/03/2023 63 0.759 -1.5 0.054 (7.6%)# 0.054 (7.6%)# 01/18/2021 60 0.705 -1.9 Total Hip(Right) 07/03/2023 63 0.715 -1.9 0.012 (1.8%)# 0.012 (1.8%)# 01/18/2021 60 0.702 -2.0 -- *Denotes significance at 95% confidence level, LSC for AP Spine = 0.022 g/cm2, LSC for Total Hip = 0.027 g/cm2 # Denotes dissimilar scan types or analysis methods Impression: The patient has low bone mass, based on the Total Spine T-score. The patient has an estimated ten-year risk of hip fracture of 1.9% and an estimated ten-year risk of major fracture of 18%, based on the WHO FRAX algorithm. The patient has risk factors, including: parental hip fracture. No significant bone loss was observed. Discussion: BONE DENSITY IS LOW AT ONE OR MORE SKELETAL SITES. This patient's lowest T-score is low at one or more skeletal sites. It meets the World Health Organization's (WHO) criteria for low bone mass (T-score between -1.0 and -2.5). The patient's 10-year risk of fracture as calculated by FRAX is less than the threshold where pharmacological therapy is recommended by the National Osteoporosis Foundation (NOF). However, all treatment decisions require clinical judgment and consideration of individual patient factors, including patient preferences, comorbidities, previous drug use, risk factors not captured in the FRAX model (e.g., frailty, falls, vitamin D deficiency, increased bone turnover, interval significant decline in bone density) and possible under or overestimation of fracture risk by FRAX. The patient should follow a healthful lifestyle (good nutrition with adequate calcium and vitamin D, and appropriate weight-bearing exercise). Follow-Up: Consider repeating this study in 2 to 3 years to reassess this patient's status, or sooner if there is some new clinical indication. Reported by: CONOR SILVEIRA M.D. on 07/03/2023 2:55:00 PM.
== END ==
PROVIDERS: Family Provider Family Medicine; PCP Family Medicine; Referring Provider Family Medicine; Visit Provider Family Medicine
DX: M85.88 Other specified disorders of bone density and structure, other site (principal); Z78.0 Asymptomatic menopausal state; E21.3 Hyperparathyroidism, unspecified
CPT/HCPCS: 77080

== ENCOUNTER → 2023-07-26 16:54 | Outpatient (CLI) | payer MEDICARE, SELFPAY ==
--- NOTE | 2023-07-26 16:58 | DI.US.S_ITS ---
PROCEDURE: US CAROTID DOPPLER BI INDICATIONS: ELEVATED CHOLESTEROL TECHNIQUE: Color and pulse Doppler interrogation was performed of both carotid systems, with image documentation and velocity measurements. COMPARISON: None. FINDINGS: Stenosis calculations are based on SRU (Society of Radiologists in Ultrasound) criteria. Right side: Brachial blood pressure: 120/79 mm Hg. Common carotid artery peak systolic velocity: 113 cm/sec. Internal carotid artery peak systolic velocity: 93 cm/sec. Internal carotid artery end diastolic velocity: 22 cm/sec. External carotid artery peak systolic velocity: 91 cm/sec. ICA/CCA peak systolic ratio: 0.8 . Hernandez scale imaging description: Moderate atherosclerotic plaque. Percent internal carotid artery stenosis: Less than 50 percent . Vertebral artery: Flow direction is biphasic. Left side: Brachial blood pressure: Not obtained. Common carotid artery peak systolic velocity: 123 cm/sec. Internal carotid artery peak systolic velocity: 99 cm/sec. Internal carotid artery end diastolic velocity: 23 cm/sec. External carotid artery peak systolic velocity: 93 cm/sec. ICA/CCA peak systolic ratio: 0.8 . Hernandez scale imaging description: Minimal atherosclerotic plaque. Percent internal carotid artery stenosis: Less than 50 percent . Vertebral artery: Flow direction is antegrade. Other: There is significantly slow flow through the left internal jugular vein. The central left IVJ and subclavian vein appear patent. IMPRESSION: Significant slow flow through the proximal left internal jugular vein, with the vein being widely patent centrally. Etiology is unknown, but differential includes venous stasis, less likely mobile blood clot. Consider neck CT with contrast to evaluate for clot. No hemodynamically significant stenosis in the internal carotid arteries. Biphasic right vertebral artery waveform, which can indicate early subclavian steal syndrome. Dictated by: Sami Rivas M.D. on 07/26/2023 at 18:25 Approved by: Sami Rivas M.D. on 07/26/2023 at 18:29
== END ==
PROVIDERS: Family Provider Family Medicine; PCP Family Medicine; Referring Provider Family Medicine; Visit Provider Family Medicine
DX: R01.1 Cardiac murmur, unspecified (principal); E21.3 Hyperparathyroidism, unspecified; E78.5 Hyperlipidemia, unspecified
CPT/HCPCS: 93880

== ENCOUNTER → 2023-08-18 14:35 | Outpatient (CLI) | payer OTHER, SELFPAY ==
--- NOTE | 2023-08-18 14:37 | DI.CT.S_ITS ---
PROCEDURE: CT ANGIO NECK INDICATIONS: F/U carotid Doppler 07/26 TECHNIQUE: After the administration of intravenous contrast, 1.5 mm axial sections acquired from the aortic arch to the [place] of [place]. Maximum intensity projection (MIP) reformats were then performed. COMPARISON: [facility], , CAROTID DOPPLER , 07/26/2023, 17:05. FINDINGS: Image quality: Angiogram was ordered. The venous system is not well opacified. Carotid system: Incidental note is made of a common origin of the right brachiocephalic artery and the left common carotid artery (bovine type arch). This is considered to be a developmental variant of no clinical consequence. The origins of the common carotid arteries appear patent. There is 60-70% narrowing seen involving the left proximal subclavian artery, as on series 8, image 114. The common carotid arteries demonstrate normal calibers and courses. The bifurcation regions appear normal bilaterally. The internal carotid arteries demonstrate normal caliber and course. Posterior circulation: The origins of the vertebral arteries appear patent. The more superior portions of the vertebral arteries demonstrate normal course and caliber. They join to form a normal appearing basilar artery. Soft tissues: In this patient with this given history, scrutiny is given to the left jugular vein. the venous system is not well opacified on this angiogram study, which is optimized for visualization of the arteries. The left jugular vein does not appear enlarged. To the limits of this examination, no thrombus can be seen within it. Visualized neck soft tissues demonstrate no suspicious abnormalities. Thyroid gland demonstrates no significant abnormality. Bones: No suspicious bony lesions. Visualized cervical spine appears normally aligned. IMPRESSION: For evaluation of the left jugular vein on this angiogram. No significant abnormality of the left jugular vein can be seen. Within the left subclavian artery, there is proximal stenosis of 60-70%. Within the arteries of the neck, no additional hemodynamically significant stenosis can be seen. Additional findings: Bovine type aortic branching pattern Any quantitative stenosis measurements were performed using the NASCET criteria. Dictated by: Marcos Georges M.D. on 08/18/2023 at 15:32 Approved by: Marcos Georges M.D. on 08/18/2023 at 15:37
[2023-08-18 15:02] LABS: Estimated Glomerular Filt Rate > 60 mL/min (>60)
== END ==
PROVIDERS: Radiology Diagnostic Radiology; Family Provider Family Medicine; PCP Family Medicine; Referring Provider Family Medicine; Visit Provider Family Medicine
DX: I82.C12 Acute embolism and thrombosis of left internal jugular vein (principal); I87.8 Other specified disorders of veins; I70.208 Unspecified atherosclerosis of native arteries of extremities, other extremity
CPT/HCPCS: 36415; 70498; 82565

== ENCOUNTER → 2023-09-06 14:51 | Outpatient (CLI) | payer OTHER, SELFPAY ==
--- NOTE | 2023-09-06 14:52 | DI.CT.S_ITS ---
PROCEDURE: CT ANGIO HEAD INDICATIONS: unilateral tinnitus and vascular stenosis TECHNIQUE: Precontrast 4.5 mm thick angled axial sections acquired from the foramen magnum to the vertex. After the administration of intravenous contrast, 1 mm thick sections acquired through the [place] of [place]. Postcontrast 4.5 mm thick sections then re-acquired from the foramen magnum to the vertex. 10 mm thick zvvusny-nlwixcyyc-ybvixprdva (MIP) reformats were acquired of the central intracranial vasculature. For radiation dose reduction, the following was used: automated exposure control, adjustment of mA and/or kV according to patient size. COMPARISON: None. FINDINGS: Image quality: Diagnostic. Anterior circulation: Intracranial internal carotid arteries are normal in size and flow. The flow within the paired anterior cerebral arteries is normal and symmetric. The flow within the middle cerebral arteries is normal and symmetric. The anterior communicating artery is seen. No aneurysms are seen. Posterior circulation: Visualized portions of the vertebral arteries demonstrate normal caliber, and join to form a normal appearing basilar artery. Flow within the posterior cerebral arteries is normal and symmetric. No aneurysms are seen. CSF spaces: Ventricles are normal in size and shape. Basal cisterns are patent. No extra-axial fluid collections. Brain: No midline shift. No intracranial bleeds or masses. Hernandez-white matter interface appears intact. Skull and face: Calvarium and facial bones appear intact, without suspicious lesions. Sinuses: Visualized sinuses and mastoids are clear. IMPRESSION: No significant intracranial arterial abnormality is seen. Dictated by: Freddy Kam M.D. on 09/07/2023 at 7:54 Approved by: Freddy Kam M.D. on 09/07/2023 at 7:59
== END ==
PROVIDERS: Family Provider Family Medicine; PCP Family Medicine; Referring Provider Family Medicine; Visit Provider Family Medicine
DX: H93.19 Tinnitus, unspecified ear (principal); I99.9 Unspecified disorder of circulatory system; E78.5 Hyperlipidemia, unspecified; E78.41 Elevated Lipoprotein(a)
CPT/HCPCS: 70496; Q9967

== ENCOUNTER → 2023-10-11 08:23 | Outpatient (CLI) | payer OTHER, SELFPAY ==
[2023-10-11 09:30] LABS: Alanine Aminotransferase 33 IU/L (<35); Albumin 4.1 g/dL (3.5-5.0); Albumin Globulin Ratio 1.6 (1.0-2.8); Alkaline Phosphatase 51 U/L (38-126); Aspartate Aminotransferase 38 IU/L (14-36); BUN Creatinine Ratio 25.8 (6-22); Bilirubin Total 0.5 mg/dL (0.2-1.3); Blood Urea Nitrogen 16 mg/dL (7-17); Calcium 8.7 mg/dL (8.4-10.2); Carbon Dioxide 30 mmol/L (22-32); Chloride 99 mmol/L (98-107); Cholesterol 240 mg/dL (140-199); Estimated Glomerular Filt Rate > 60 mL/min (>60); Globulin 2.5 g/dL (1.7-4.1); Glucose 94 mg/dL (80-110); HDL Cholesterol 92 mg/dL (40-60); HEMOLYSIS < 15 (0-50); LDL Cholesterol Calculated 138 mg/dL (<100); Potassium 4.4 mmol/L (3.4-5.1); Sodium 134 mmol/L (137-145); Total Protein 6.6 g/dL (6.3-8.2); Triglycerides 51 mg/dL (35-150)
[2023-10-11 09:57] LABS: Thyroid Stimulating Hormone 1.21 uIU/mL (0.47-4.68)
[2023-10-12 16:24] LABS: Triiodothyronine T3 Total 84 ng/dL (71-180)
[2023-10-13 04:09] LABS: Apolipoprotein A1 222 mg/dL (116-209); Apolipoprotein B 108 mg/dL (<90)
[2023-10-17 12:16] LABS: Lipoprotein (a) 127.5 nmol/L (<75.0)
== END ==
PROVIDERS: Family Provider Family Medicine; PCP Family Medicine; Referring Provider Family Medicine; Visit Provider Family Medicine
DX: E78.49 Other hyperlipidemia (principal); R06.09 Other forms of dyspnea; E03.9 Hypothyroidism, unspecified
CPT/HCPCS: 36415; 80053; 80061; 82172; 83695; 84436; 84443; 84480

== ENCOUNTER → 2023-11-09 09:08 | Outpatient (CLI) | payer OTHER, SELFPAY ==
--- NOTE | 2023-11-09 09:44 | DI.ECHO.S_ITS ---
[facility] +---------+ : : [address] [place] : : : : [id number] : : : : Phone: [phone]+ Echocardiogram Report + + :Name: AMIE TAPIA Study Date: 11/09/2023 Height: 27 in : :[facility] ReadingLocation: Weight: 143 lb : : Gender: Female BSA: 0.91 m2 : :: 1960 Age: 63 yrs BP: 120/80 mmHg: :Reason For Study: Murmur : : Performed By: Vanessa Trent : :Referring: ADRIANNA BARTON : + + Interpretation Summary The ejection fraction is estimated to be 60-65%. Diastolic parameters suggest probable normal left ventricular diastolic function and normal filling pressures. The right ventricle is normal in size and function. There is mild mitral regurgitation. There is mild tricuspid regurgitation. The right ventricular systolic pressure is estimated to be at least 29 mmHg based on an estimated right atrial pressure of 8 mm Hg. Procedure: A two-dimensional transthoracic echocardiogram with color flow and Doppler was performed. The study quality was technically adequate. The heart rate ranged between 61-68 bpm during the study. Left Ventricle: The left ventricle is normal in size and wall thickness. The ejection fraction is estimated to be 60-65%. Diastolic parameters suggest probable normal left ventricular diastolic function and normal filling pressures. Right Ventricle: The right ventricle is normal in size and function. Atria: Visually, the atria are in size. The interatrial septum grossly appears intact with no obvious evidence for an atrial septal defect. Mitral Valve: The mitral valve is normal. There is mild mitral regurgitation. Aortic Valve: The aortic valve opens well. There is no aortic valve stenosis. No aortic regurgitation is present. Tricuspid Valve: The tricuspid valve leaflets are thin and pliable. There is mild tricuspid regurgitation. The right ventricular systolic pressure is estimated to be at least 29 mmHg based on an estimated right atrial pressure of 8 mm Hg. Pulmonic Valve: The pulmonic valve is not well visualized. There is no pulmonic valvular regurgitation. Great Vessels: The aortic root is normal size. The ascending aorta is normal in size. The aortic arch is normal in size. The IVC is dilated (diameter is greater than 2.1 cm) yet it collapses greater than 50% with a sniff. This suggests a right atrial pressure of 8 mm Hg. Pericardium/ Pleura There is no pericardial effusion. There is no pleural effusion. MMode/2D Measurements & Calculations LVIDd: 3.7 cm LVOT diam: 1.7 cm LVIDs: 2.5 cm Ao root diam: 3.3 cm FS: 33.2 % asc Aorta Diam: 3.0 cm IVSd: 0.89 cm Ao Arch Diam (Prox Trans): 2.3 cm LVPWd: 0.78 cm LV johnson. diameter/BSA (cm/m^2): 4.1 LV sys. diameter/BSA (cm/m^2): 2.7 LA A2 area: 21.2 cm2 RA long axis: 4.9 cm LA A4 area: 19.6 cm2 RA area: 17.0 cm2 LA length (vol): 5.3 cm RA vol: 50.8 ml LA vol: 66.3 ml RA : 55.7 ml/m2 LA vol index: 72.7 ml/m2 IVC diam: 2.4 cm RVD1 (basal): 2.5 cm TAPSE: 2.7 cm Doppler Measurements & Calculations Ao V2 max: 156.9 cm/sec LVOT Max Napoleon: 114.3 cm/sec Ao V2 mean: 114.3 cm/sec LV V1 max P.2 mmHg Ao max P.8 mmHg LV V1 VTI: 25.9 cm Ao mean P.9 mmHg MARLEN(I,D): 1.4 cm2 Ao V2 VTI: 39.8 cm MARLEN(V,D): 1.6 cm2 sev ratio: 0.65 MARLEN indexed to BSA (cm^2/m^2): 1.6 MV E max napoleon: 95.6 cm/sec TR max napoleon: 230.1 cm/sec MV A max napoleon: 88.2 cm/sec TR max P.2 mmHg MV E/A: 1.1 PA V2 max: 72.7 cm/sec Med Peak E' Napoleon: 7.4 cm/sec PA V2 mean: 47.5 cm/sec E/E' med: 13.0 PA mean P.1 mmHg Lat Peak E' Napoleon: 10.4 cm/sec PA pr(Accel): 17.3 mmHg E/E' lat: 9.2 E/e' average: 11.1 MV dec time: 0.23 sec SVLVOT): 56.4 ml Reading Physician:08:52 PM
== END ==
LOC: ECHO 09:09
PROVIDERS: Family Provider Family Medicine; PCP Family Medicine; Referring Provider Internal Medicine Cardiovascular Disease; Visit Provider Internal Medicine Cardiovascular Disease
DX: I08.1 Rheumatic disorders of both mitral and tricuspid valves (principal); R01.1 Cardiac murmur, unspecified
CPT/HCPCS: 93306

== ENCOUNTER → 2023-12-29 09:13 | Outpatient (CLI) | payer MEDICARE, SELFPAY ==
[2023-12-29 11:39] LABS: Cholesterol 212 mg/dL (140-199); Triglycerides 58 mg/dL (35-150)
[2023-12-29 11:52] LABS: HDL Cholesterol 112 mg/dL (40-60); LDL Cholesterol Calculated 88 mg/dL (<100)
== END ==
PROVIDERS: Family Provider Family Medicine; PCP Family Medicine; Referring Provider Internal Medicine Cardiovascular Disease; Visit Provider Internal Medicine Cardiovascular Disease
DX: E78.5 Hyperlipidemia, unspecified (principal)
CPT/HCPCS: 36415; 80061

== ENCOUNTER → 2024-01-16 12:19 | Outpatient (CLI) | payer MEDICARE, SELFPAY ==
--- NOTE | 2024-01-16 12:20 | DI.US.S_ITS ---
PROCEDURE: US THYROID INDICATIONS: FOLLOW-UP NODULES TECHNIQUE: Real-time scanning was performed of the thyroid gland, with image documentation. COMPARISON: [facility], US, US THYROID, 01/06/2023, 15:24. FINDINGS: Thyroid: Right lobe measures 5.2 x 1.2 x 1.6 cm. Left lobe measures 5.1 x 1.4 x 1.1 cm. Isthmus is 0.4 cm thick. Echotexture is homogeneous. Multiple bilateral thyroid nodules, the most suspicious of which are described below. No sonographic evidence of enlarged lymph nodes. Nodule number: 1 (previously 4) Location: Right inferior Size: 1.5 x 0.6 x 1.2 cm, previously 1.3 x 0.6 x 1.1 cm. Composition: Solid Echogenicity: Hypoechoic Shape: wider than tall. Margins: Smooth Echogenic foci: None Total points: 4 ACR TI-RADS category: 4 Nodule number: 2 (previously 5) Location: Right superior Size: 1.5 x 1 x 1.1 cm, previously 1.5 x 0.7 x 1.2 cm. Composition: Solid Echogenicity: Isoechoic Shape: wider than tall. Margins: Smooth Echogenic foci: None Total points: 3 ACR TI-RADS category: 3 Nodule number: 3 (new) Location: Right superior Size: 1.5 x 0.6 x 1 cm. Composition: Solid Echogenicity: Hypoechoic Shape: wider than tall. Margins: Smooth Echogenic foci: None Total points: 4 ACR TI-RADS category: 4 IMPRESSION: Multiple thyroid nodules, as described above. Based on size criteria, recommend FNA of nodule 3 which is new compared to prior. ACR TI-RADS definitions and recommendations: TI-RADS 1 (benign): 0 points. FNA not needed. TI-RADS 2 (not suspicious): 2 points. FNA not needed. TI-RADS 3 (mildly suspicious): 3 points. * FNA if 2.5 cm or larger, follow up if 1.5 cm or larger (at 1, 3, and 5 years). TI-RADS 4 (moderately suspicious): 4-6 points. * FNA if 1.5 cm or larger, follow up if 1 cm or larger (at 1, 2, 3, and 5 years). TI-RADS 5 (highly suspicious): 7 points or more. * FNA if 1 cm or larger, follow up if 0.5 cm or larger (every year for 5 years). Dictated by: Taty Goodson M.D. on 01/17/2024 at 10:59 Approved by: Taty Goodson M.D. on 01/17/2024 at 12:03
== END ==
PROVIDERS: Family Provider Family Medicine; PCP Family Medicine; Referring Provider Family Medicine; Visit Provider Family Medicine
DX: C73 Malignant neoplasm of thyroid gland (principal); E03.9 Hypothyroidism, unspecified; E04.2 Nontoxic multinodular goiter
CPT/HCPCS: 76536

== ENCOUNTER → 2024-02-05 09:55 | Outpatient (CLI) | payer MEDICARE, SELFPAY ==
--- NOTE | 2024-02-05 | PATH_ITS ---
Note [facility] Accession Number: [id number] TESTS RESULT FLAG UNITS REF RANGE LAB Clinician Provided Cytology Information No. of containers..01 Other (Miscellaneous) No. of containers..02 Previously Prepared Cytology Slide Source: RIGHT THYROID NODULE DIAGNOSIS: RIGHT THYROID NODULE, FINE NEEDLE ASPIRATION. ADEQUATE FOR EVALUATION. COLLOID AND FOLLICULAR GROUPS ARE PRESENT. BENIGN FOLLICULAR (GOITEROUS) NODULE (BETHESDA CATEGORY II), SEE COMMENT. COMMENT: MICROSCOPIC EXAMINATION REVEALS A MILDLY CELLULAR ASPIRATE, COMPOSED OF ABUNDANT COLLOID, FOLLICULAR GROUPS WITHOUT SIGNIFICANT CYTOLOGIC OR ARCHITECTURAL ATYPIA, AND FEW MACROPHAGES. THESE FINDINGS SUPPORT A BENIGN FOLLICULAR (GOITEROUS) NODULE. CORRELATION WITH CLINICAL AND RADIOGRAPHIC FINDINGS IS RECOMMENDED. ACCORDING TO THE B[place]DA REPORTING SYSTEM FOR THYROID CYTOPATHOLOGY, THE RISK OF MALIGNANCY IN THE CATEGORY BENIGN-CATEGORY II IS 0-3%; THEREFORE RECOMMEND CONTINUED ULTRASOUND SURVEILLANCE WITH REPEAT FNA IF THE NODULE SIGNIFICANTLY INCREASES IN SIZE. Pathologist ICD10: 01 E04.1 Signed out by: Kulwant Rojo MD, Pathologist NPI- [id number] Performed by: Freddy Mendez, [place] Operator ([facility]) Gross description: 30 CC, RED, CLEAR RECIEVED: IN CYTOLYT WITH 6 ALCOHOL FIXED AND 6 QUICK STAINED SLIDES ALSO 1 RNA VIAL WILL ON 08-15-2025.VO /VDU 02/06/2024 0832 Local FLAG LEGEND: L-Low Normal,H-High Normal,LL-Alert Low,HH-Alert High <-Panic Low,>-Panic High,A-Abnormal,AA-Critical Abnormal Performed at: 01 [address] [facility], [place] [address] Dannie Godinez MD, Performed at: [address], [place], [place] [id number] MD Dannie Godinez MD Phone: [phone]
--- NOTE | 2024-02-05 09:56 | DI.US.S_ITS ---
PROCEDURE: US FINE NEEDLE ASPIRATION INDICATIONS: recommended FNA of nodule 3 on US TECHNIQUE: The indications, alternatives, benefits, risks, and complications of the procedure were explained to the patient. Written informed consent was obtained and placed in the chart. The area of interest was examined sonographically and a site was chosen for ultrasound guided percutaneous sampling. The skin was prepared and draped in the usual fashion, and anesthetized with 1% lidocaine infiltrated from the skin down to the lesion. Multiple passes were then performed, with contents emptied into an appropriate pathology specimen container. A bandage was applied to the area of access at completion of the study. COMPARISON: [facility], CT, CT ANGIO NECK, 08/18/2023, 15:16. [facility], US, US THYROID, 01/16/2024, 12:29. FINDINGS: Location(s) of lesion(s) sampled: Right superior thyroid nodule measuring 1.3 cm. #3. [place]: 22 gauge hypodermic needles x7. Medications: 1% lidocaine for local anaesthesia. Complications: None. Procedure is technically difficult due to the nodules deep location. IMPRESSION: Successful ultrasound-guided right superior thyroid nodule fine needle aspiration, with cytology results pending. Dictated by: Fletcher Durant M.D. on 02/05/2024 at 14:23 Approved by: Fletcher Durant M.D. on 02/05/2024 at 14:25
== END ==
PROVIDERS: Family Provider Family Medicine; PCP Family Medicine; Referring Provider Family Medicine; Visit Provider Family Medicine
DX: E04.1 Nontoxic single thyroid nodule (principal)
CPT/HCPCS: 10005

== ENCOUNTER → 2024-07-31 19:01 | Outpatient (CLI) | payer MEDICARE, SELFPAY ==
--- NOTE | 2024-07-31 19:07 | DI.MRI.S_ITS ---
PROCEDURE: MR ANKLE LT WO CON INDICATIONS: Left Ankle Pain TECHNIQUE: Noncontrast sagittal T1 spin echo and T2 fast spin echo with fat saturation, axial proton density fast spin echo and T2 fast spin echo with fat saturation, coronal T1 spin echo and T2 fast spin echo with fat saturation through the ankle/hindfoot. COMPARISON: None. FINDINGS: Image quality: Excellent. Bones and joints: Mild midfoot and hindfoot joint osteoarthritic changes are seen with joint space narrowing, subchondral sclerosis. Marrow edema involving lateral malleolus is seen without definite fracture line. Tiny osteochondral injuries are noted involving posterior aspect of distal tibial plafond. No osteochondral injuries of the talar dome. Small amount of tibiotalar joint effusion is seen, no loose bodies. Medial structures: The posterior tibialis, flexor digitorum longus, and flexor hallucis longus tendons are intact. The posterior tibial neurovascular bundle appears normal within the tarsal tunnel, without extrinsic mass effect. The deltoid ligament and spring ligament are intact. Lateral structures: The anterior talofibular ligament is thickened. The calcaneofibular, and posterior talofibular ligaments appear intact. More superiorly, the anterior and posterior tibiofibular ligaments appear intact, as is the intermalleolar ligament. The tibiofibular syndesmosis is normal in width at 2 mm or less. There is significant thickening of peroneus longus and brevis tendons with moderate amount of fluid distending tendon sheath at the level of lateral malleolus extending to the level of cuboid. No signal abnormality is noted within the sinus tarsi. Anterior structures: The tibialis anterior, extensor hallucis longus, and extensor digitorum longus tendons appear intact. The dorsal talonavicular ligament appears intact. Posterior and plantar structures: Achilles tendon is intact. Medial and lateral bands of the plantar fascia are of normal thickness. No abductor digiti quinti muscle atrophy to suggest Kay neuropathy. IMPRESSION: 1. Mild midfoot and hindfoot joint osteoarthritis. Suggestion of contusion involving lateral malleolus without definite fracture line. No fracture or dislocation. Tiny osteochondral injuries involving posterior aspect of distal tibial plafond. No osteochondral injuries of talar dome. Small amount of joint effusion, no loose bodies. 2. Moderate grade tenosynovitis involving peroneus tendons at the level of lateral malleolus extending to the level of cuboid. 3. Low-grade ATFL sprain. 4. Rest of the ankle tendons and ligaments are intact. Dictated by: Ambrose Sherwood M.D. on 08/01/2024 at 11:31 Approved by: Ambrose Sherwood M.D. on 08/01/2024 at 12:13
== END ==
PROVIDERS: Family Provider Family Medicine; PCP Family Medicine; Referring Provider Family Medicine; Visit Provider Family Medicine
DX: S93.492A Sprain of other ligament of left ankle, initial encounter (principal); M19.072 Primary osteoarthritis, left ankle and foot; M25.475 Effusion, left foot; M25.572 Pain in left ankle and joints of left foot; G89.29 Other chronic pain
CPT/HCPCS: 73721

== ENCOUNTER → 2025-02-16 21:28 | Outpatient (ROUT) | payer MEDICARE, SELFPAY ==
[2025-02-18 19:07] LABS: Fecal Immunochemical Test Negative (Negative)
== END ==
PROVIDERS: PCP Family Medicine; Visit Provider Family Medicine
DX: Z12.11 Encounter for screening for malignant neoplasm of colon (principal)
CPT/HCPCS: 82274

== ENCOUNTER → 2025-07-07 12:11 | Outpatient (CLI) | payer MEDICARE, SELFPAY ==
--- NOTE | 2025-07-07 12:13 | DI.RAD.S_ITS ---
PROCEDURE: XR DEXA AXIAL SKELETON
== END ==
LOC: RAD 12:12
PROVIDERS: PCP Family Medicine; Referring Provider Family Medicine; Visit Provider Family Medicine
DX: M81.0 Age-related osteoporosis without current pathological fracture (principal)
CPT/HCPCS: 77080